=== PATIENT | female | born 1950 | race Caucasian/White ===

== ENCOUNTER 2018-06-05 01:13 | Day surgery (SDC) | payer MEDICARE, OTHER ==
[~2018-06-05] VITALS: Ht 160 cm; Wt 57.6 kg
[~2018-06-05 01:13] MED LIST: ACTONEL; ALB18R INH; CODE118S5 PO; FLUINH INH; FLUT12HF2 IH; NAB500 PO; PRED-1 PO; PREMARIN PO
[2018-06-05] MEDS ORDERED: PROPOFOL EMUL(*) 10MG/ML 20 ML 40 ML ONE (07:00)
[2018-06-05 08:10] VITALS: BP 137/76
[2018-06-05 09:31] VITALS: BP 105/62
[2018-06-05 09:45] VITALS: BP 94/65
[2018-06-05 10:00] VITALS: BP 105/69
[2018-06-05 10:04] VITALS: BP 132/79
[2018-06-05] MEDS ORDERED: NORMOSOL R SOLN(*) 1000 ML BAG 1,000 ML IV PRN (11:10)
[2018-06-05] MEDS ORDERED: LIDOCAINE/SOD BICARB 8.4% SYR ID ONE (11:10)
== END 2018-06-05 10:15 | disposition home or self-care (01) ==
LOC: OR 01:13
PROVIDERS: ATTEND Family Medicine
DX: Z12.11 Encounter for screening for malignant neoplasm of colon (principal)
CPT/HCPCS: 00812; G0121; J2704

== ENCOUNTER 2018-11-12 06:31 | Inpatient (IN) | payer MEDICARE, OTHER ==
[~2018-11-12] VITALS: Ht 160 cm; Wt 61.2 kg
[~2018-11-12 06:31] MED LIST changes: +CHOL10005 PO; +LOR5/325 PO; +ONDA4TAB97 PO
[2018-11-12] MEDS ORDERED: NS(*) 0.9% 1000 ML BAG 1,000 ML IV ONE (06:41)
--- NOTE | 2018-11-12 06:43 | ER Report ---
History and Physical Time Seen By MD: 06:43 Hx. of Stated Complaint: patient is back in to the ER due abd. pain has gotten worse since yesterday and has vomited; pain started around 0400 this am; pain and nausea medications did not help HPI/ROS CHIEF COMPLAINT: Diffuse abdominal pain, nausea, vomiting HISTORY OF PRESENT ILLNESS: Patient is a 68-year-old female here with complaints of persistent diffuse abdominal pain since yesterday at 1400 hrs. Patient was seen here last night with complaints of abdominal pain syndrome with antiemetics and pain medications however patient had persistent symptoms prompting her evaluation. Patient denies prior abdominal surgeries aside from transvaginal hysterectomy. Patient denies taking prescription medications. She had several episodes of emesis yesterday, persistent nausea. Patient is alert and oriented, afebrile, hemodynamically stable. REVIEW OF SYSTEMS: Constitutional: No fever, no chills. Eyes: No discharge. ENT: No sore throat. Cardiovascular: No chest pain, no palpitations. Respiratory: No cough, no shortness of breath. Gastrointestinal: + diffuse abdominal pain, + nausea and vomiting. Genitourinary: No hematuria. Musculoskeletal: No back pain. Skin: No rashes. Neurological: No headache. Allergies: Coded Allergies: Penicillins (Verified Allergy, Intermediate, RASH, 11/12/18) Sulfa (Sulfonamide Antibiotics) (Verified Allergy, Unknown, SWELLING, 11/12/18) Uncoded Allergies: DAIRY PRODUCTS (Allergy, Intermediate, THROAT SWELLING, WHEEZES, 06/10/07) Home Meds Active Scripts Hydrocodone Bit/Acetaminophen (HYDROCODON-ACETAMINOPHEN 5-325) 1 Each Tablet, 1 EACH PO Q4-6H PRN for PAIN, #12 TAKE ONE TABLET BY MOUTH EVERY 4-6 HOURS NEEDED FOR PAIN Prov:SHALINILETICIA DO 11/11/18 Ondansetron Hcl (ZOFRAN) 4 Mg Tablet, 4 MG PO Q6H PRN for NAUSEA/VOMITING, #10 Prov:LETICIA LOYA DO 11/11/18 Reported Medications Cholecalciferol (Vitamin D3) (VITAMIN D3) 1,000 Unit Tablet, 2 UNIT PO, TAB 11/11/18 Albuterol Sulfate (VENTOLIN HFA) 18 Gm Inh, 2 PUFF INH PRN, INH 05/27/18 Discontinued Reported Medications Fluticasone/Salmeterol (ADVAIR HFA 115-21 MCG INHALER) 12 Gm Hfa.aer.ad, 2 PUFF IH QDAY 05/27/18 Hx Smoking: No Hx Substance Use Disorder: No Hx Alcohol Use: Yes Constitutional Vital Sign - Last 24 Hours 11/12/18 11/12/18 11/12/18 11/12/18 06:31 06:34 06:35 07:00 Temp 97.8 Pulse ??? 68 Resp 17 B/P (MAP) 170/86 170/86 (114) 145/72 (96) Pulse Ox 93 O2 Delivery Room Air 11/12/18 11/12/18 11/12/18 11/12/18 07:01 07:15 07:20 07:30 Pulse 71 65 54 B/P (MAP) 153/78 (103) Pulse Ox 94 97 98 Physical Exam General Appearance: The patient is alert, has no immediate need for airway protection and no signs of toxicity. Moderate distress secondary to pain Eyes: Pupils equal and round no pallor or injection. ENT, Mouth: Mucous membranes are moist. Respiratory: There are no retractions, lungs are clear to auscultation. Cardiovascular: Regular rate and rhythm. Gastrointestinal: Abdomen is soft and + tender on palpation of mid epigastrium, no masses, bowel sounds normal. Neurological: No focal neuro deficits Skin: Warm and dry, no rashes. Musculoskeletal: Neck is supple non tender. Extremities are nontender, nonswollen and have full range of motion. DIFFERENTIAL DIAGNOSIS: After history and physical exam differential diagnosis was considered for abdominal pain including but not limited to appendicitis, cholecystitis, gastritis and urinary tract infection. Medical Decision Making EKG/Imaging Imaging CT of the abdomen and pelvis with contrast: Indication: Epigastric pain and vomiting. Technique: Helical CT was performed through the abdomen and pelvis following IV contrast enhancement with 75 cc of Isovue-370. Multiplanar reconstructions are reviewed. One of the following dose optimization techniques was utilized in the performance of this exam: Automated exposure control; adjustment of the mA and/or kV according to the patient's size; or use of an iterative reconstruction technique. Specific details can be referenced in the facility's radiology CT exam operational policy. Comparison: None available. Lower lung riggs: There is minimal linear atelectasis at the bases. No consolidation or volume loss is identified. Liver: Mildly enlarged. The right lobe measures 19.0 cm. There is uniform contrast enhancement. No focal liver lesions are identified. There is uniform enhancement of the venous structures. Gallbladder/biliary tree: The gallbladder is normal in size and homogeneous in density. The bile ducts are normal in caliber. Pancreas: Normal in size, shape, and density. There are no signs of peripancreatic inflammation or fluid. Spleen: Normal in size, shape, and density. Adrenal glands: Within normal limits. Kidneys/urinary bladder: The kidneys are normal in size, shape, and density. There are no signs of obstructive uropathy. The bladder is unremarkable, as visualized. Intestinal structures: There are several loops of jejunum which are moderately dilated in the lower abdomen and pelvis, measuring up to 2.6 cm. There appears to be some spiraling of the vascular structures in the mesentery of the affected small bowel loops, suggesting mechanical obstruction due to adhesions or internal hernia. The proximal small bowel is not appreciably dilated. The stomach is mildly dilated and filled with fluid. The colon is not dilated. There is evidence of diverticulosis in the descending colon and sigmoid colon, but there are no signs of acute diverticulitis. The appendix is not clearly visualized and may have been removed. Pelvis: The uterus is absent. A small amount of free fluid is present in the pelvis. No circumscribed fluid collection is identified. Aorta and vascular structures: There is mild atherosclerotic calcification in the abdominal aorta. There is no evidence of aneurysm. Ascites or fluid collections: A small amount of free fluid is present in the pelvis. Otherwise unremarkable. Skeletal structures: There are mild degenerative changes in the lumbar spine. No acute skeletal deformity is identified. Impression: Findings consistent with mechanical obstruction of the jejunum in the lower abdomen and pelvis, probably due to adhesions or internal hernia. ED Course/Re-evaluation ED Course Patient is a 68-year-old female here with complaints of mid and upper abdominal pain, nausea, vomiting persistent since yesterday 1400 hrs. Patient denies prior history of abdominal surgeries. She did have a transvaginal hysterectomy in the past and denies taking other medications at this time. Patient was evaluated last night at which time she was noted to have a mild leukocytosis. CT scan was completed at time of evaluation and patient was noted to have a small bowel obstruction. Labs were not repeated since they were completed last night. Patient was discussed with Dr. Augustin who accepted the patient to his service. Patient had significant relief after administration of saline bolus, Dilaudid, Zofran. Patient was hemodynamically stable at time of admission. Decision to Disposition Date: Nov 12, 2018 Decision to Disposition Time: 07:53 Depart Departure Latest Vital Signs Vital Signs Date Time Temp Pulse Resp B/P (MAP) Pulse Ox O2 Delivery O2 Flow Rate FiO2 11/12/18 07:30 153/78 (103) 11/12/18 07:20 54 98 11/12/18 06:34 97.8 17 Room Air Impression: Primary Impression: SBO (small bowel obstruction) Additional Impression: Epigastric abdominal pain Condition: Improved Disposition: Admitted from ER Problem Qualifiers ISAAC BAUTISTA DO Nov 12, 2018 06:43
[2018-11-12] MEDS ORDERED: ONDANSETRON 4 MG/2 ML VIAL IVP ONE (06:45)
[2018-11-12] MEDS ORDERED: HYDROMORPHONE HCL 1 MG/ML SYRINGE IVP ONE (06:45)
[2018-11-12] MEDS ORDERED: IOPAMIDOL 76% 50 ML INFUS BTL 50 ML ONE (06:54)
[2018-11-12] MEDS ORDERED: FLUSH 10 ML SYR IVP PRN (07:30)
[2018-11-12] MEDS ORDERED: ALBUTEROL 8 GM INHALER INH PRN (07:30)
[2018-11-12] MEDS ORDERED: MORPHINE 2 MG/ML SYR IVP PRN (07:30)
[2018-11-12] MEDS ORDERED: ONDANSETRON 4 MG/2 ML VIAL IVP PRN (07:30)
--- NOTE | 2018-11-12 07:36 | RADIOLOGY IMAGING REPORT ---
FACILITY: [facility] PATIENT NAME: Hannah Gunter : 1950 MR: [id number] V: [id number] EXAM DATE: ORDERING PHYSICIAN: ISAAC DICKEY TECHNOLOGIST: Location: [facility] [place] Patient: Hannah Gunter : 1950 Visit/Account:[id number] Date of Sevice: 11/12/2018 CT of the abdomen and pelvis with contrast: Indication: Epigastric pain and vomiting. Technique: Helical CT was performed through the abdomen and pelvis following IV contrast enhancement with 75 cc of Isovue-370. Multiplanar reconstructions are reviewed. One of the following dose optimization techniques was utilized in the performance of this exam: Autom ated exposure control; adjustment of the mA and/or kV according to the patient's size; or use of an i terative reconstruction technique. Specific details can be referenced in the facility's radiology CT exam operational policy. Comparison: None available. Lower lung riggs: There is minimal linear atelectasis at the bases. No consolidation or volume loss is identified. Liver: Mildly enlarged. The right lobe measures 19.0 cm. There is uniform contrast enhancement. No fo olaf liver lesions are identified. There is uniform enhancement of the venous structures. Gallbladder/biliary tree: The gallbladder is normal in size and homogeneous in density. The bile duct s are normal in caliber. Pancreas: Normal in size, shape, and density. There are no signs of peripancreatic inflammation or fl uid. Spleen: Normal in size, shape, and density. Adrenal glands: Within normal limits. Kidneys/urinary bladder: The kidneys are normal in size, shape, and density. There are no signs of ob structive uropathy. The bladder is unremarkable, as visualized. Intestinal structures: There are several loops of jejunum which are moderately dilated in the lower a bdomen and pelvis, measuring up to 2.6 cm. There appears to be some spiraling of the vascular structu res in the mesentery of the affected small bowel loops, suggesting mechanical obstruction due to adhe sions or internal hernia. The proximal small bowel is not appreciably dilated. The stomach is mildly dilated and filled with fluid. The colon is not dilated. There is evidence of diverticulosis in the descending colon and sigmoid col on, but there are no signs of acute diverticulitis. The appendix is not clearly visualized and may persaud ve been removed. Pelvis: The uterus is absent. A small amount of free fluid is present in the pelvis. No circumscribed fluid collection is identified. Aorta and vascular structures: There is mild atherosclerotic calcification in the abdominal aorta. Th ere is no evidence of aneurysm. Ascites or fluid collections: A small amount of free fluid is present in the pelvis. Otherwise unrema rkable. Skeletal structures: There are mild degenerative changes in the lumbar spine. No acute skeletal defor mity is identified. Impression: Findings consistent with mechanical obstruction of the jejunum in the lower abdomen and p chucky, probably due to adhesions or internal hernia. A preliminary report was called to Dr. Dickey at [facility] [place] at 0720 hours. Report Dictated By: Chivo Rahman MD at 11/12/2018 7:12 AM Report E-Signed By: Chivo Rahman MD at 11/12/2018 7:31 AM WSN:[id number]
--- NOTE | 2018-11-12 08:23 | RADIOLOGY IMAGING REPORT ---
FACILITY: [facility] - [place] PATIENT NAME: Hannah Gunter : 1950 MR: [id number] V: [id number] EXAM DATE: ORDERING PHYSICIAN: OMAR SHRESTHA TECHNOLOGIST: Location: [facility] Patient: Hannah Gunter : 1950 Visit/Account:[id number] Date of Sevice: 11/12/2018 KUB SINGLE VIEW ABDOMEN HISTORY: SBO Comparison made to a CT scan from earlier a.m. FINDINGS: There is no obvious evidence of a small bowel obstruction on this KUB. The overall appearance of the KUB, however, is similar to the rim turning finisher KUB from the CT scan. There is a definite small bowel obstructi on on the CT scan with dilated loops of bowel measuring up to 2.7 cm. There was free fluid seen on th at CT and what appeared to be a possible closed loop obstruction. Excreted IV contrast from both kidn eys. Contrast within the bladder. Bony structures unremarkable. IMPRESSION: 1. No change in overall appearance of the KUB when compared to the CT scan scanogram. Features on the CT scan compatible small bowel obstruction. Closed loop obstruction suggested on the CT scan.. Report Dictated By: Wayne Kathleen MD at 11/12/2018 8:11 AM Report E-Signed By: Wayne Kathleen MD at 11/12/2018 8:19 AM WSN:[id number]
[2018-11-12 08:28] VITALS: BP 155/80
[2018-11-12] MEDS: PANTOPRAZOLE SOD 40 MG IV VIAL IVP SCH (09:08)
[2018-11-12] MEDS: ENOXAPARIN 40 MG/0.4ML SYR SC SCH (09:08)
[2018-11-12] MEDS: NS(*) 0.9% 1000 ML BAG 1,000 ML IV PRN ×2 (09:09→16:59)
[2018-11-12 11:03] VITALS: BP 120/63
[2018-11-12] MEDS ORDERED: FLUT12HF2 INH (11:12)
--- NOTE | 2018-11-12 12:41 | Gen Surgery History & Physical ---
History of Present Illness Chief Complaint Abdominal pain, nausea, vomiting History of Present Illness 68-year-old female presents to the emergency room with a one-day history of severe crampy abdominal pain with nausea and vomiting. She was seen in the ER last night and diagnosed with "food poisoning" and was sent home without imaging but her pain worsened through the night prompting her to come back into the ER this morning. Her white blood cell count last night was 13,000. No further labs were drawn this morning but a CT scan was obtained which is consistent with a small bowel obstruction. The patient has no previous history of small bowel obstruction. Her only abdominal surgery was a total vaginal hysterectomy approximately 28 years ago. An NG tube was inserted in the emergency room and on my evaluation currently she is feeling much better with very little abdominal pain and no further nausea or vomiting. She reports not having passed flatus for a couple of days. 2 days ago she had several bowel movements and 2 small bowel movements yesterday. She denies feeling constipated and she denies any history of diarrhea. She has no other complaints today. History Problems: (1) Asthma Status: Chronic Home Meds Reported Medications Fluticasone/Salmeterol (ADVAIR HFA 115-21 MCG INHALER) 12 Gm Hfa.aer.ad, 2 PUFF INH BID 11/12/18 Cholecalciferol (Vitamin D3) (VITAMIN D3) 1,000 Unit Tablet, 2 UNIT PO, TAB 11/11/18 Albuterol Sulfate (VENTOLIN HFA) 18 Gm Inh, 1 PUFF INH Q4H, INH 05/27/18 Discontinued Reported Medications Fluticasone/Salmeterol (ADVAIR HFA 115-21 MCG INHALER) 12 Gm Hfa.aer.ad, 2 PUFF IH QDAY 05/27/18 Discontinued Scripts Hydrocodone Bit/Acetaminophen (HYDROCODON-ACETAMINOPHEN 5-325) 1 Each Tablet, 1 EACH PO Q4-6H PRN for PAIN, #12 TAKE ONE TABLET BY MOUTH EVERY 4-6 HOURS NEEDED FOR PAIN Prov:LETICIA LOYA DO 11/11/18 Ondansetron Hcl (ZOFRAN) 4 Mg Tablet, 4 MG PO Q6H PRN for NAUSEA/VOMITING, #10 Prov:LETICIA LOYA DO 11/11/18 Allergies: Coded Allergies: Penicillins (Verified Allergy, Intermediate, RASH, 11/12/18) Sulfa (Sulfonamide Antibiotics) (Verified Allergy, Unknown, SWELLING, 11/12/18) Uncoded Allergies: DAIRY PRODUCTS (Allergy, Intermediate, THROAT SWELLING, WHEEZES, 06/10/07) Review of Systems All Systems Reviewed/Normal: Yes, Except as Noted Gastrointestinal: Nausea, Vomiting, Abdominal Pain Exam General Appearance: Alert, Awake, No Acute Distress, Afebrile Neuro: No Gross deficits Eyes: PERRLA GI: Other (Soft, nondistended, mild periumbilical TTP) Extremities: Warm, Perfused Psych: Alert & Oriented X3, Appropriate Mood & Affect Assessment and Plan Problems: (1) SBO (small bowel obstruction) Status: Acute Assessment & Plan: 11/12/18: Patient is admitted with a small bowel obstruction based on her CT scan. After the NG tube was placed, her symptoms rapidly improved. She is no longer having nausea or vomiting and her pain and her abdomen is minimal without any pain control. Still not passing flatus. I have explained bowel obstructions with her in great detail. I've explained her management including starting with conservative management. If she is no better by tomorrow then we will consider a water soluble small bowel follow-through. If she fails to improve or the small bowel follow-through reveal something concerning then we may need to proceed with surgical exploration. She seems to understand this discussion and seems agreeable with this plan. Condition Stable. Time Spent: < 30 min Venous Thromboembolism VTE Risk Physician Assess for VTE Risk: Yes Patient's VTE Risk: Low VTE Diagnostic Test 2 Days Prior to Admit: No Antithrombotics Is Pt On Any Antithrombotics?: No OMAR SHRESTHA MD Nov 12, 2018 12:41
[2018-11-12 15:29] VITALS: BP 131/67
[2018-11-12 17:23] VITALS: Ht 160 cm; Wt 61.2 kg
[2018-11-12 18:50] VITALS: BP 150/65
[2018-11-12] MEDS ORDERED: BENZOCAINE/MENTHOL 1 EACH LOZG PO PRN (19:30)
[2018-11-12 23:00] VITALS: BP 143/65
[2018-11-13] MEDS: NS(*) 0.9% 1000 ML BAG 1,000 ML IV PRN ×2 (01:01→09:00)
[2018-11-13 03:29] VITALS: BP 138/65
--- NOTE | 2018-11-13 05:45 | RADIOLOGY IMAGING REPORT ---
FACILITY: [facility] - [place] PATIENT NAME: Hannah Gunter : 1950 MR: [id number] V: [id number] EXAM DATE: ORDERING PHYSICIAN: OMAR SHRESTHA TECHNOLOGIST: Location: [facility] [place] Patient: Hannah Gunter : 1950 Visit/Account:[id number] Date of Sevice: 11/13/2018 INDICATION: SBO EXAM DATE: 11/13/2018 5:00 AM COMPARISON: CT and radiograph yesterday. FINDINGS: Single AP supine image of the abdomen. Esophagogastric tube remains in place. Persistent dilation o f at least one loop of small bowel overlying the pelvis. No pneumatosis, pneumoperitoneum or portal venous gas. No evidence of large volume ascites or mass. No acute osseous abnormality. IMPRESSION: Persistent dilation of the small bowel loop over the pelvis suspicious for obstruction as previously seen. Report Dictated By: Soto Barrett MD at 11/13/2018 5:37 AM Report E-Signed By: Soto Barrett MD at 11/13/2018 5:41 AM WSN:[id number]
[2018-11-13 06:05] LABS: PLATELET COUNT, AUTOMATED 267 K/uL (150-450)
--- NOTE | 2018-11-13 06:37 | General Surgery Progress Note ---
Subjective Progress Notes Subjective Had some abdominal cramps late last night, now gone. No pain or nausea this morning. Passing a little flatus. Physical Exam Vital Signs Date Time Temp Pulse Resp B/P (MAP) Pulse Ox O2 Delivery O2 Flow Rate FiO2 11/13/18 03:29 98.3 55 20 138/65 (89) 92 Nasal Cannula 1.0 Intake and Output 11/13/18 07:00 Intake Total 2010 ml Output Total 850 ml Balance 1160 ml Intake Oral 10 ml IV Total 2000 ml Output Urine Total 250 ml Gastric Drainage Total 600 ml # Voids 2 General Appearance: Alert, Awake, No Acute Distress, Afebrile GI: Soft and Non-Tender Extremities: Warm, Perfused Result Diagram: 11/13/18 0534 11/13/1834 Assessment and Plan Problems: (1) SBO (small bowel obstruction) Status: Acute Assessment & Plan: 11/12/18: Patient is admitted with a small bowel obstruction based on her CT scan. After the NG tube was placed, her symptoms rapidly improved. She is no longer having nausea or vomiting and her pain and her abdomen is minimal without any pain control. Still not passing flatus. I have explained bowel obstructions with her in great detail. I've explained her management including starting with conservative management. If she is no better by tomorrow then we will consider a water soluble small bowel follow-through. If she fails to improve or the small bowel follow-through reveal something concerning then we may need to proceed with surgical exploration. She seems to understand this discussion and seems agreeable with this plan. 11/13/18: Seems to be doing better. KUB looks improved but not resolved. Will get a water-soluble small bowel series today. If contrast makes it through to colon and SBO opens up will remove NG tube and start clear diet. Condition Stable Time Spent: < 30 min Exam Sepsis Risk: No Definite Risk OMAR SHRESTHA MD Nov 13, 2018 06:37
[2018-11-13] MEDS ORDERED: DIATRIZOATE MEGL/DIATRIZOA SOD 120 ML SOLN PO ONE (07:27)
[2018-11-13 07:31] VITALS: BP 126/61
[2018-11-13] MEDS: PANTOPRAZOLE SOD 40 MG IV VIAL IVP SCH (09:00)
[2018-11-13] MEDS: ENOXAPARIN 40 MG/0.4ML SYR SC SCH (09:00)
[2018-11-13 11:02] VITALS: BP 162/75
[2018-11-13] MEDS ORDERED: NS(*) 0.9% 1000 ML BAG 1,000 ML IV PRN (12:52)
--- NOTE | 2018-11-13 13:08 | RADIOLOGY IMAGING REPORT ---
FACILITY: [facility] PATIENT NAME: Hannah Gunter : 1950 MR: [id number] V: [id number] EXAM DATE: ORDERING PHYSICIAN: OMAR SHRESTHA TECHNOLOGIST: Location: [facility] [place] Patient: Hannah Gunter : 1950 Visit/Account:[id number] Date of Sevice: 11/13/2018 Exam type: SMALL BOWEL SERIES History: SBO, water-soluble contrast only please Comparison: KUB and CT of the abdomen and pelvis November 12, 2018. Findings: A dilute Gastrografin suspension was instilled to the patient's NG tube. On the immediate image most of the contrast was in the stomach although small amount had entered the duodenal and proximal jejun um. On the 15 minute image contrast had passed through the jejunum and into the proximal ileum. On the 45 minute image contrast was noted in the cecum. On the 1.5 hour image contrast was present in t he left side the colon. No bowel dilatation was appreciated. There is a slight irregular contour to the greater curvature the stomach which could be related to extrinsic compression from adjacent tammy l loops. No fluoroscopy was performed IMPRESSION: 1. No evidence of small bowel obstruction at this time. Gastrografin entered the right-sided colon on the 45 minute image and left-sided colon on the 1.5 hour image. This a slightly irregular contour to the greater curvature the stomach which could be related to extr insic compression from adjacent bowel loops. If of concern endoscopy recommended Report Dictated By: Amy Welsh MD at 11/13/2018 1:00 PM Report E-Signed By: Amy Welsh MD at 11/13/2018 1:04 PM WSN:[email or web address]
[2018-11-13 14:32] VITALS: BP 127/67
--- NOTE | 2018-11-13 16:33 | Medical Nutrition Therapy ---
Nutrition Anthropometrics Height (Inches): 63.00 Height (Calculated Centimeters: 160.379425 Weight (Pounds): 135 Weight (Calculated Kilograms): 61.235 Pavel Nutrition Score: Very Poor Pavel Nutrition Risk Score: 19 Dietary Referral Nutrition Risk Factors: Nutrition Risk Comment: Nutritional Diagnosis Nutritional Risk Acuity 1: GI Obstruction Nutritional Risk Acuity 3: Nausea Nutritional Acuity: 1-High Nutrition Etiology: Physiological Causes Nutrition Problem/Etiology/Sym: AEB dx SBO Energy Requirement: 1830 (30gm/kg) Protein Requirement: 61 (1gm/kg) Fluid Requirement: 1830 (30ml/kg) Diet Type: Clear Liquids Nutrition Intervention: Incr diet as tolerated Nutrition Monitoring & Eval Nutrition Goals: Eat 75-100% Meal RD Patient Assessment Time: [address] Assessment Type: RD Assessment Patient Nutrition Acuity: 2-Moderate Follow Up Date: Nov 15, 2018 Nutritional Comment: 11/12 Pt admitted for SBO. pt reporting N/V, Pt is curretnly NPO with NG suction. alb 4.4. Will cont to monitor. 11/13 Diet advanced to clear liquid. No intake reported at this time. Pt has hypoactive bowel sounds with distended abnomin. Nausea resolved. Will cont to monitor and encourage intake. LEONA LOPEZ Nov 13, 2018 16:33
[2018-11-13 20:29] VITALS: BP 141/76
[2018-11-13 23:14] VITALS: BP 146/76
[2018-11-14 03:01] VITALS: BP 131/68
[2018-11-14 07:11] VITALS: BP 138/69
--- NOTE | 2018-11-14 08:14 | General Surgery Progress Note ---
Subjective Progress Notes Subjective No complaints this morning. No N/V, no bloating, passing flatus and stools. Physical Exam Vital Signs Date Time Temp Pulse Resp B/P (MAP) Pulse Ox O2 Delivery O2 Flow Rate FiO2 11/14/18 07:18 90 Nasal Cannula 0.5 11/14/18 07:11 97.8 67 16 138/69 (92) Intake and Output 11/14/18 06:59 Intake Total 1430 ml Output Total 125 ml Balance 1305 ml Intake Oral 430 ml IV Total 1000 ml Gastric Drainage Total 125 ml # Voids 6 # Bowel Movements 7 General Appearance: Alert, Awake, No Acute Distress, Afebrile GI: Soft and Non-Tender Extremities: Warm, Perfused Result Diagram: 11/13/18 0534 11/13/18 0534 Assessment and Plan Problems: (1) SBO (small bowel obstruction) Status: Acute Assessment & Plan: 11/12/18: Patient is admitted with a small bowel obs truction based on her CT scan. After the NG tube was placed, her symptoms rapidly improved. She is no longer having nausea or vomiting and her pain and her abdomen is minimal without any pain control. Still not passing flatus. I have explained bowel obstructions with her in great detail. I've explained her management including starting with conservative management. If she is no better by tomorrow then we will consider a water soluble small bowel follow-through. If she fails to improve or the small bowel follow-through reveal something concerning then we may need to proceed with surgical exploration. She seems to understand this discussion and seems agreeable with this plan. 11/13/18: Seems to be doing better. KUB looks improved but not resolved. Will get a water-soluble small bowel series today. If contrast makes it through to colon and SBO opens up will remove NG tube and start clear diet. 11/14/18: SBO resolved. SBFT unremarkable yesterday. Clears started yesterday afternoon and pt tolerating. Will start regular diet this morning and see how she tolerates. Condition Stable. Time Spent: < 30 min Exam Sepsis Risk: No Definite Risk OMAR SHRESTHA MD Nov 14, 2018 08:14
[2018-11-14] MEDS: ENOXAPARIN 40 MG/0.4ML SYR SC SCH (08:43)
[2018-11-14] MEDS ORDERED: PANTOPRAZOLE SOD 40 MG TABEC PO SCH (09:00)
[2018-11-14 11:27] VITALS: BP 147/87
[2018-11-14 15:13] VITALS: BP 140/79
--- NOTE | 2018-11-14 17:06 | Short(Outpt) Discharge Summary ---
Discharge Summary Reason for Hosp/Final Diag: (1) SBO (small bowel obstruction) Status: Acute Hospital Course & Plan: 11/12/18: Patient is admitted with a small bowel obstruction based on her CT scan. After the NG tube was placed, her symptoms rapidly improved. She is no longer having nausea or vomiting and her pain and her abdomen is minimal without any pain control. Still not passing flatus. I have explained bowel obstructions with her in great detail. I've explained her management including starting with conservative management. If she is no better by tomorrow then we will consider a water soluble small bowel follow-through. If she fails to improve or the small bowel follow-through reveal something concerning then we may need to proceed with surgical exploration. She seems to understand this discussion and seems agreeable with this plan. 11/13/18: Seems to be doing better. KUB looks improved but not resolved. Will get a water-soluble small bowel series today. If contrast makes it through to colon and SBO opens up will remove NG tube and start clear diet. 11/14/18: SBO resolved. SBFT unremarkable yesterday. Clears started yesterday afternoon and pt tolerating. Will start regular diet this morning and see how she tolerates. 11/14/18 (evening): SBO still resolved. Still passing flatus and stool and tolerating diet. Will d/c to home this evening. Departure Discharge to: Home, Self Care Discharge Instructions Home Meds Reported Medications Fluticasone/Salmeterol (ADVAIR HFA 115-21 MCG INHALER) 12 Gm Hfa.aer.ad, 2 PUFF INH BID 11/12/18 Cholecalciferol (Vitamin D3) (VITAMIN D3) 1,000 Unit Tablet, 2 UNIT PO, TAB 11/11/18 Albuterol Sulfate (VENTOLIN HFA) 18 Gm Inh, 1 PUFF INH Q4H, INH 05/27/18 Discontinued Reported Medications Fluticasone/Salmeterol (ADVAIR HFA 115-21 MCG INHALER) 12 Gm Hfa.aer.ad, 2 PUFF IH QDAY 05/27/18 Discontinued Scripts Hydrocodone Bit/Acetaminophen (HYDROCODON-ACETAMINOPHEN 5-325) 1 Each Tablet, 1 EACH PO Q4-6H PRN for PAIN, #12 TAKE ONE TABLET BY MOUTH EVERY 4-6 HOURS NEEDED FOR PAIN Prov:LETICIA LOYA DO 11/11/18 Ondansetron Hcl (ZOFRAN) 4 Mg Tablet, 4 MG PO Q6H PRN for NAUSEA/VOMITING, #10 Prov:LETICIA LOYA DO 11/11/18 Diet: Regular Activity: As Tolerated Special Instructions: You may eat whatever you like but eat slowly and limit how much you eat over the next couple of days. As you continue to feel better and have more confidence that your GI tract is handling the food without problems, you can increase how much you're eating back to normal. Please come back to the ER if you have a recurrence of your GI/abdominal symptoms. OMAR SHRESTHA MD Nov 14, 2018 17:06
== END 2018-11-14 17:30 | disposition home or self-care (01) | DRG 390 ==
LOC: ER 07:03 → MED 07:45
PROVIDERS: ADMIT Surgery; ATTEND Surgery
PROC: 0D9670Z Drainage of Stomach with Drainage Device, Via Natural or Artificial Opening (ICD-10-PCS; principal; 2018-11-12)
DX: K56.609 Unspecified intestinal obstruction, unspecified as to partial versus complete obstruction (principal); J45.909 Unspecified asthma, uncomplicated; Z88.0 Allergy status to penicillin; Z88.2 Allergy status to sulfonamides
CPT/HCPCS: 36415; 74018; 74177; 74250; 82310; 82374; 82435; 82565; 82947; 84132; 84295; 84520; 85025; 96374; 96375; 96376; 99285; C9113; J1170; J1650; J2270; J2405; J7030; Q9967